=== PATIENT | male | born 1985 | race Caucasian/White ===

== ENCOUNTER 2019-05-11 12:03 | Emergency (ER) | payer BC ==
--- NOTE | 2019-05-11 12:32 | EDM.PDOC ---
ED HPI GENERAL MEDICAL PROBLEM - General Chief Complaint: Respiratory Problem Stated Complaint: COUGH,SORE THROAT Time Seen by Provider: 05/11/19 12:31 - History of Present Illness INITIAL COMMENTS - FREE TEXT/NARRATIVE: 34-year-old male presents the emergency room with cough fever sore throat. This started a couple of days ago the sore throat is actually getting better but today he noted fever at home that his sister measured at 101. He does not have myalgias or arthralgias no nausea no vomiting or other GI symptoms. Patient smokes but is trying to cut back to a few cigarettes a day he has an intermittent chronic morning cough he still has this but it is a little more productive but only in the mornings and it is gone from clear to yellow in color of the sputum. Throat Pain Score (Numeric/FACES): 5 Chest Pain Score (Numeric/FACES): 6 - Related Data Allergies Allergy/AdvReac Type Severity Reaction Status Date / Time No Known Allergies Allergy Verified 05/11/19 12:16 Home Meds: Home Meds . [No Known Home Meds] 05/11/19 [History] Past Medical History Musculoskeletal History: Reports: Other (See Below) Other Musculoskeletal History: plate to left hand-fractured Social & Family History - Tobacco Use Smoking Status *Q: Current Every Day Smoker Years of Tobacco use: 10 Packs/Tins Daily: 0.5 - Caffeine Use Caffeine Use: Reports: Coffee, Energy Drinks, Soda, Tea - Recreational Drug Use Recreational Drug Use: No ED ROS GENERAL - Review of Systems Review Of Systems: See Below Constitutional: Reports: Fever. Denies: Chills, Malaise, Weakness HEENT: Reports: No Symptoms Respiratory: Reports: Cough, Sputum. Denies: Shortness of Breath, Wheezing Cardiovascular: Reports: No Symptoms Endocrine: Reports: No Symptoms GI/Abdominal: Reports: No Symptoms ED EXAM, GENERAL - Physical Exam Exam: See Below Exam Limited By: No Limitations General Appearance: Alert, No Apparent Distress Eye Exam: Bilateral Eye: Normal Inspection Ears: Normal External Exam, Normal Canal, Hearing Grossly Normal, Normal TMs Nose: Normal Inspection, Normal Mucosa, No Blood Throat/Mouth: Normal Inspection, Normal Lips, Normal Teeth, Normal Gums, Normal Oropharynx, Normal Voice, No Airway Compromise Head: Atraumatic, Normocephalic Neck: Normal Inspection, Supple, Non-Tender, Full Range of Motion Respiratory/Chest: No Respiratory Distress, Lungs Clear, Normal Breath Sounds Cardiovascular: Normal Peripheral Pulses, Regular Rate, Rhythm, No Edema Extremities: Normal Inspection, No Pedal Edema, Other (No cyanosis or clubbing noted) Course - Vital Signs Last Recorded V/S: Last Vital Signs Temp 36.9 C 05/11/19 12:13 Pulse 70 05/11/19 12:13 Resp 20 05/11/19 12:13 BP 132/80 05/11/19 12:13 Pulse Ox 95 05/11/19 12:13 - Orders/Labs/Meds Orders: Active Orders 24 hr Category Date Time Status Chest 2V [CR] Stat Exams 05/11/19 12:54 Taken Isolation [COMM] Routine Oth 05/11/19 12:55 Ordered - Re-Assessments/Exams Free Text/Narrative Re-Assessment/Exam: 05/11/19 14:49 Patient had a normal looking chest x-ray no acute cardiopulmonary changes influenza screen is negative he does not meet criteria per the [facility] guidelines dated May 07, 2023 for Covid 19 testing. Departure - Departure Time of Disposition: 14:51 Disposition: Home, Self-Care 01 Clinical Impression: Cough - Discharge Information Referrals: PCP,None [Primary Care Provider] - Forms: ED Department Discharge Additional Instructions: Return to the emergency room with any questions problems or worsening symptoms. Congratulations on decreasing your cigarette usage but you really need to quit you are almost there. Follow-up in the hospital clinic in 3 to 4 days for recheck if needed. [phone] Sepsis Event Note - Evaluation Sepsis Screening Result: No Definite Risk - Focused Exam Vital Signs: Vital Signs Temp Pulse Resp BP Pulse Ox 05/11/19 12:13 36.9 C 70 20 132/80 95 Date Exam was Performed: 05/11/19 Time Exam was Performed: 14:51 - My Orders Last 24 Hours: My Active Orders 05/11/19 12:54 Chest 2V [CR] Stat 05/11/19 12:55 Isolation [COMM] Routine - Assessment/Plan Last 24 Hours: My Active Orders 05/11/19 12:54 Chest 2V [CR] Stat 05/11/19 12:55 Isolation [COMM] Routine
--- NOTE | 2019-05-12 07:48 | CR ---
Chest: 2 views of the chest were obtained. Comparison: No prior chest imaging is available. Heart size and mediastinum are normal. Lungs are clear but slightly hyperinflated. Bony structures are unremarkable. Impression: 1. Slightly hyperinflated lungs compatible with history of smoking. 2. Nothing acute is otherwise seen. Diagnostic code #2 This report was dictated in MDT
== END 2019-05-11 15:10 | disposition home or self-care (01) ==
LOC: JD.ED 12:03
DX: R05 Cough (principal); F17.210 Nicotine dependence, cigarettes, uncomplicated
CPT/HCPCS: 71046; 71046-26; 87804; 99282; 99283-25

== ENCOUNTER 2019-10-07 22:38 | Emergency (ER) | payer BC ==
--- NOTE | 2019-10-07 23:27 | EDM.PDOC ---
ED HPI GENERAL MEDICAL PROBLEM - General Chief Complaint: Upper Extremity Injury/Pain Stated Complaint: WRIST INJURY Time Seen by Provider: 10/07/19 23:10 Source of Information: Reports: Patient History Limitations: Reports: No Limitations - History of Present Illness INITIAL COMMENTS - FREE TEXT/NARRATIVE: Mr. Salamanca is a very pleasant 34-year-old gentleman who now presents the ED stating that he tripped and fell onto a clenched right fist around 22:00 this evening, at home. He states that when he initially looked at it, it looked like it was disfigured or dislocated, but he instinctively grabbed it, and felt it pop back into place. He states that he initially had pain to the medial hand, particularly when he tried to hotel staff member something, although that has significantly i mproved now that he has applied an ice pack here in the ED. He states that he took 600 mg of ibuprofen around 22:00. The patient has a history of a fracture to the right 2nd metacarpal bone, requiring pinning in 2008, but no injury to his medial hand. Other than tonight's injury to his right hand and wrist area, the patient states that he is uninjured. Here in the ED, the patient's initial BP is found to be modestly elevated at 151/96, otherwise, he is hemodynamically stable, afebrile, saturating 100% on room air. Other than tonight hand/wrist injury, the patient denies having a recent fever, chills, sore throat, ear pain, nasal or sinus congestion, cough, dyspnea, chest pain, palpitations, nausea, vomiting, constipation, diarrhea, abdominal pain, urinary symptoms, recent weight gain or weight loss, recent bloody bowel movements or black bowel movements, recent joint aches, headaches, or rashes. The patient does not have a PCP. His hand surgeries were performed in [place]. Right Wrist Pain Score (Numeric/FACES): 7 - Related Data Allergies Allergy/AdvReac Type Severity Reaction Status Date / Time No Known Allergies Allergy Verified 10/07/19 23:05 Home Meds: Home Meds . [No Known Home Meds] 05/11/19 [History] Past Medical History Musculoskeletal History: Reports: Fracture (bilateral hands) - Past Surgical History HEENT Surgical History: Reports: Oral Surgery (dental extractions) Musculoskeletal Surgical History: Reports: ORIF (left hand, 2008), Other (See Below) (Right 2nd metarpal pinning 2008) Social & Family History - Tobacco Use Smoking Status *Q: Light Tobacco Smoker Tobacco Use Within Last Twelve Months: Smokeless Tobacco (Chews 1/2 can per day), Vaping (nicotine, on occasion) Years of Tobacco use: 17 Packs/Tins Daily: 0.3 Packs/Tins Daily Comment: Down from 1 ppd - Caffeine Use Caffeine Use: Reports: Coffee - Alcohol Use Alcohol Use History: No - Recreational Drug Use Recreational Drug Use: Yes Drug Use in Last 12 Months: No Recreational Drug Type: Reports: Cocaine (last snorted years ago), Marijuana /Hashish (last smoked 02/17/2017), Methamphetamine (last snorted, smoked, injected 02/17/2017), Psilocybin (Mushrooms) (last ate 2009) - Living Situation & Occupation Living situation: Reports: Single, with Significant Other (Girlfriend) Occupation: Employed ([employer]) Review of Systems - Review of Systems Review Of Systems: Comprehensive ROS is negative, except as noted in HPI. ED EXAM, GENERAL - Physical Exam Exam: See Below Exam Limited By: No Limitations General Appearance: Alert, WD/WN, No Apparent Distress Extremities: Other (Mild swelling and mild tenderness to the dorsal aspect of the patient's right hand over the medial carpal bones, and extending to the 4th and 5th metacarpal bones. No other visible or palpable abnormalities. Neurovascular status of the right upper extremity is intact.) ED TRAUMA EXTREMITY PROCEDURES - Splinting Right Upper Extremity Splint Site: Right wrist Pre-Procedure NV Status: Normal Post-Procedure NV Status: Normal Splint Material: Fiberglass Splint Design: Gutter (ulnar) Applied & Form Fitted By: Provider Provider Post-Splint Application NV Check: NV Status Normal, Good Position Complications: No Course - Vital Signs Last Recorded V/S: Last Vital Signs Temp 37.1 C 10/07/19 23:03 Pulse 71 10/07/19 23:03 Resp 20 10/07/19 23:03 BP 151/96 H 10/07/19 23:03 Pulse Ox 100 10/07/19 23:03 - Orders/Labs/Meds Orders: Active Orders 24 hr Category Date Time Status Hand Comp Min 3V Rt [CR] Stat Exams 10/07/19 23:20 Ordered Wrist Comp Min 3V Rt [CR] Stat Exams 10/07/19 23:20 Taken - Re-Assessments/Exams Free Text/Narrative Re-Assessment/Exam: 10/07/19 23:21 As above, the patient tripped and fell onto his right clenched fist, possibly dislocating his right wrist, then self-reducing it. He does not have much pain to his hand now that he has been applying an ice pack to it, but he does have some swelling to the dorsal aspect of his right hand over the medial carpals and 4th and 5th metacarpals. I have ordered x-rays of his right hand and wrist to evaluate. 10/07/19 23:54 4-view radiographs of the right wrist appear to be normal, with no fractures or dislocations identified. Formal read per the Radiologist pending. 4-view radiographs of the right hand appear to be normal, with no fractures or dislocations identified. Formal read per the Radiologist pending. Although the x-rays appear to be normal, in order to protect the hand and wrist, I will place the patient into an ulnar gutter splint and have him follow-up with Ortho. 10/08/19 00:18 I placed the patient's right upper extremity into an ulnar gutter splint, with the hand in a thumbs-up position and the elbow flexed at 90 degrees. I will watkins ve him ice his hand through the splint, and elevate his right hand as much as possible over the next few days.minimize swelling. He may take [id number] ibuprofen as needed for discomfort. He is to call the office of Dr. Britt in the morning to make an appointment to be seen. I will write him a note for work. Departure - Departure Time of Disposition: 00:19 Disposition: Home, Self-Care 01 Condition: Good Clinical Impression: Sprain of right hand - Discharge Information *PRESCRIPTION DRUG MONITORING PROGRAM REVIEWED*: Not Applicable *COPY OF PRESCRIPTION DRUG MONITORING REPORT IN PATIENT ROMA: Not Applicable Instructions: How to Use Cold Therapy, [id number], Wrist Sprain, Adult Referrals: PCP,None [Primary Care Provider] - Aakash Britt MD [Physician] - Forms: ED Department Discharge, ED Return to Work/School Form Additional Instructions: You were seen in the emergency room after tripping and falling onto your clenched right fist, possibly dislocating then relocating your right hand or wrist. Work-up in the ER included x-rays of your right hand and wrist, which returned normal. No broken bones or dislocations were seen. Based on your history, physical exam, and ER x-rays, we are concerned that you may have dislocated your right hand or wrist, and therefore, in order to protect the connective tissues, you have been placed into a right arm splint. Be aware that the splint cannot get wet. We recommend that you ice and elevate your right hand as much as possible over the next few days, in order to help minimize swelling. You may take [id number] ibuprofen, 3 tablets (600 mg) up to every 8 hours, with food, as needed for discomfort. A note for work has been provided to you. Follow-up with the Orthopedic Surgeon Dr. Aakash Britt, at the next available appointment. Make sure that the airline lounge receptionist understands that you are following up from the ER. If any other problems, please do not hesitate to return to the ER. Sepsis Event Note (ED) - Evaluation Sepsis Screening Result: No Definite Risk - Focused Exam Vital Signs: Vital Signs Temp Pulse Resp BP Pulse Ox 10/07/19 23:03 37.1 C 71 20 151/96 H 100 - My Orders Last 24 Hours: My Active Orders 10/07/19 23:20 Hand Comp Min 3V Rt [CR] Stat Wrist Comp Min 3V Rt [CR] Stat - Assessment/Plan Last 24 Hours: My Active Orders 10/07/19 23:20 Hand Comp Min 3V Rt [CR] Stat Wrist Comp Min 3V Rt [CR] Stat
--- NOTE | 2019-10-08 09:26 | CR ---
Right wrist: 4 views of the right wrist were obtained. Comparison: No prior wrist exam. Joint spaces are preserved. Old healed fracture is again noted within the shaft of the right 2nd metacarpal. No acute fracture, dislocation or other bony abnormality is appreciated. Impression: 1. Old healed fracture within the 2nd metacarpal. 2. Right wrist exam is otherwise unremarkable. Diagnostic code #2 This report was dictated in MDT
--- NOTE | 2019-10-08 09:26 | CR ---
Right hand: 4 views of the right hand were obtained. Comparison: No previous hand study is available. Deformity is noted within the shaft of the 2nd metacarpal compatible with old healed fracture. No acute fracture, dislocation or other bony abnormality is appreciated. Impression: 1. Old healed fracture within the 2nd metacarpal. 2. Nothing acute is seen on right hand exam. Diagnostic code #2 This report was dictated in MDT
== END 2019-10-08 00:45 | disposition home or self-care (01) ==
LOC: JD.ED 22:38
DX: S63.91XA Sprain of unspecified part of right wrist and hand, initial encounter (principal); F17.210 Nicotine dependence, cigarettes, uncomplicated; W01.0XXA Fall on same level from slipping, tripping and stumbling without subsequent striking against object, initial encounter; Y92.009 Unspecified place in unspecified non-institutional (private) residence as the place of occurrence of the external cause
CPT/HCPCS: 29125; 73110-26-RT; 73110-RT; 73130-26-RT; 73130-RT; 99282; 99283-25